=== PATIENT | male | born 1985 | race Caucasian/White ===

== ENCOUNTER 2018-05-07 13:49 | Emergency (ER) | payer BC, OTHER ==
[~2018-05-07] VITALS: Ht 182.9 cm; Wt 145.1 kg
[2018-05-07] MEDS ORDERED: ONDANSETRON 4 MG/2 ML (SDV) Z0FRAN IVP ONE ×2 (14:15→17:15)
[2018-05-07] MEDS ORDERED: NS IV 1000 ML 1,000 ML IV SCH (14:15)
[2018-05-07] MEDS ORDERED: HYOSCYAMINE 0.125 MG (LEVSIN) TAB PO ONE (14:15)
[2018-05-07 14:22] LABS: BASOPHILS % (AUTO) 0 % (0-10); EOSINOPHILS % (AUTO) 0 % (0-10); HEMATOCRIT 26 % (40-54); HEMOGLOBIN 9.1 G/DL (13.3-17.7); LYMPHOCYTES # (AUTO) 3.1 X 10^3 (1.0-4.0); LYMPHOCYTES % (AUTO) 33 % (12-44); MEAN CORPUSCULAR HEMOGLOBIN 30 PG (25-34); MEAN CORPUSCULAR HGB CONC 36 G/DL (32-36); MEAN CORPUSCULAR VOLUME 86 FL (80-99); MEAN PLATELET VOLUME 9.9 FL (7.4-10.4); MONOCYTES # (AUTO) 0.8 X 10^3 (0.0-1.0); MONOCYTES % (AUTO) 8 % (0-12); NEUTROPHILS # (AUTO) 5.6 X 10^3 (1.8-7.8); NEUTROPHILS % (AUTO) 59 % (42-75); PLATELET COUNT 306 10^3/uL (130-400); RED BLOOD COUNT 2.99 10^6/uL (4.35-5.85); RED CELL DISTRIBUTION WIDTH 12.2 % (10.0-14.5); WHITE BLOOD COUNT 9.5 10^3/uL (4.3-11.0)
--- NOTE | 2018-05-07 14:23 | ED GI ---
General Chief Complaint: Abdominal/GI Problems Stated Complaint: N/V;ABD PAIN Nursing Triage Note: PT BROUGHT IN BY [facility] WITH COMPLAINT ABD PAIN, NAUSEA, AND VOMTING. STATES ITS BEEN GOING ON FOR THE LAST FEW DAYS. PT IS ALSO COMPLAINING OF DIZZINESS. PT IS AN OUT [employer]. Sepsis Screen: No Definite Risk Source of Information: Patient, EMS Exam Limitations: No Limitations History of Present Illness Date Seen by Provider: May 07, 2018 Time Seen by Provider: 13:40 Initial Comments On [address] the [place] with chief complaint that he is having some nausea vomiting and diffuse abdominal discomfort. Says for the past 3 or 4 days he has felt poorly until last night when he finally vomited. He says does not normally vomit. He's had no diarrhea or fever but he does have some chills and night sweats. 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 He denies any past medical or surgical history. He does not take any medicines although he did try some over- the-counter Pepto-Bismol and omeprazole with no relief of his symptoms over the last couple days. He quit chewing tobacco approximate 4 days ago but he doesn't think this has anything to do with his nausea and vomiting. He's had no dysuria , discharge or blood from rectum. He says he got a little lightheaded after trying to get up this morning and walked from the gas station back to his rig so they called ambulance. The patient denies a history of black tarry stools prior to taking the Pepto- Bismol. He's not had any blood in his vomitus. Allergies and Home Medications Allergies Coded Allergies: No Known Drug Allergies (Unverified , 05/07/18) Patient Home Medication List Home Medication List Reviewed: Yes Review of Systems Review of Systems Constitutional: No chills, No fever EENTM: No Eye Tearing, No Ear Drainage Respiratory: Denies Orthopnea, Denies Shortness of Air Cardiovascular: Denies Chest Pain, Denies Edema Gastrointestinal: See HPI, Abdominal Pain (diffuse); Denies Constipated, Denies Diarrhea; Nausea, Poor Fluid Intake, Vomiting Genitourinary: Denies Burning, Denies Discharge Musculoskeletal: No back pain, No joint pain Skin: No pruritus, No rash Past Qqrtxhs-Dkgvfo-Dnalfn Hx Patient Social History Alcohol Use: Occasionally Uses Recreational Drug Use: No Type Used: Smokeless Tobacco Recent Foreign Travel: No Contact w/Someone Who Travel: No Recent Infectious Disease Expo: No Recent Hopitalizations: No Immunizations Up To Date Tetanus Booster (TDap): Unknown Seasonal Allergies Seasonal Allergies: No Past Medical History Surgeries: No Respiratory: No Cardiac: No Neurological: No Genitourinary: No Gastrointestinal: No Musculoskeletal: No Endocrine: No HEENT: No Cancer: No Psychosocial: No Integumentary: No Blood Disorders: No Physical Exam Vital Signs Vital Signs - First Documented 05/07/18 13:55 Pulse 131 Resp 19 B/P (MAP) 110/65 (80) Pulse Ox 99 O2 Delivery Room Air Capillary Refill : Less Than 3 Seconds Height/Weight/BMI Height: 6'0" Weight: 320lbs. oz. [id number]; BMI Method:Stated General Appearance: WD/WN, mild distress HEENT: PERRL/EOMI, normal ENT inspection, TMs normal; No pharynx normal ( oropharynx is dry) Neck: non-tender, full range of motion, normal inspection Respiratory: lungs clear, normal breath sounds, no respiratory distress, no accessory muscle use Cardiovascular: normal peripheral pulses, regular rate, rhythm, no edema Peripheral Pulses: 2+ Radial Pulses (R), 2+ Radial Pulses (L) Gastrointestinal: normal bowel sounds, soft, no organomegaly; No rebound; tenderness (mild diffuse tenderness but especially in the epigastric region), other (negative for Guadarrama sign or any tenderness around McBurney's point. No mesenteric signs.) Extremities: non-tender, normal inspection, normal capillary refill Neurologic/Psychiatric: alert, normal mood/affect, oriented x 3 Skin: normal color, warm/dry Progress/Results/Core Measures Results/Orders Lab Results Laboratory Tests Test 05/07/18 14:05 05/07/18 15:38 Range/Units White Blood Count 9.5 4.3-11.0 10^3/uL Red Blood Count 2.99 L 4.35-5.85 10^6/uL Hemoglobin 9.1 L 13.3-17.7 G/DL Hematocrit 26 L 40-54 % Mean Corpuscular Volume 86 80-99 FL Mean Corpuscular Hemoglobin 30 25-34 PG Mean Corpuscular Hemoglobin Concent 36 32-36 G/DL Red Cell Distribution Width 12.2 10.0-14.5 % Platelet Count 306 130-400 10^3/uL Mean Platelet Volume 9.9 7.4-10.4 FL Neutrophils (%) (Auto) 59 42-75 % Lymphocytes (%) (Auto) 33 12-44 % Monocytes (%) (Auto) 8 0-12 % Eosinophils (%) (Auto) 0 0-10 % Basophils (%) (Auto) 0 0-10 % Neutrophils # (Auto) 5.6 1.8-7.8 X 10^3 Lymphocytes # (Auto) 3.1 1.0-4.0 X 10^3 Monocytes # (Auto) 0.8 0.0-1.0 X 10^3 Eosinophils # (Auto) 0.0 0.0-0.3 10^3/uL Basophils # (Auto) 0.0 0.0-0.1 10^3/uL Sodium Level 136 135-145 MMOL/L Potassium Level 3.4 L 3.6-5.0 MMOL/L Chloride Level 107 98-107 MMOL/L Carbon Dioxide Level 21 21-32 MMOL/L Anion Gap 8 5-14 MMOL/L Blood Urea Nitrogen 29 H 7-18 MG/DL Creatinine 0.90 0.60-1.30 MG/DL Estimat Glomerular Filtration Rate > 60 BUN/Creatinine Ratio 32 Glucose Level 139 H 70-105 MG/DL Calcium Level 8.5 8.5-10.1 MG/DL Corrected Calcium 8.7 8.5-10.1 MG/DL Total Bilirubin 0.3 0.1-1.0 MG/DL Aspartate Amino Transf (AST/SGOT) 14 5-34 U/L Alanine Aminotransferase (ALT/SGPT) 26 0-55 U/L Alkaline Phosphatase 32 L 40-136 U/L Total Protein 5.4 L 6.4-8.2 GM/DL Albumin 3.7 3.2-4.5 GM/DL Lipase 28 8-78 U/L Urine Color YELLOW Urine Clarity CLEAR Urine pH 6 5-9 Urine Specific [place] 1.020 1.016-1.022 Urine Protein NEGATIVE NEGATIVE Urine Glucose (UA) NEGATIVE NEGATIVE Urine Ketones NEGATIVE NEGATIVE Urine Nitrite NEGATIVE NEGATIVE Urine Bilirubin NEGATIVE NEGATIVE Urine Urobilinogen NORMAL NORMAL MG/DL Urine Leukocyte Esterase NEGATIVE NEGATIVE Urine RBC (Auto) NEGATIVE NEGATIVE Urine RBC NONE /HPF Urine WBC NONE /HPF Urine Squamous Epithelial Cells RARE /HPF Urine Crystals NONE /LPF Urine Bacteria NONE /HPF Urine Casts NONE /LPF Urine Mucus NEGATIVE /LPF Urine Culture Indicated NO My Orders Orders - ABE THOMAS Saline Lock/Iv-Start (05/07/18 15:01) D5 Ns 1000 Ml Iv Solution (Dextrose 5%/0 (05/07/18 15:01) Saline Lock/Iv-Start (05/07/18 15:40) Lactated Ringers (Lr 1000 Ml Iv Solution (05/07/18 15:40) Medications Given in ED Current Medications Medications Dose Ordered Sig/Warren Route Start Time Stop Time Status Last Admin Dose Admin Dextrose/Sodium Chloride 1,000 ml @ 0 mls/hr Q0M ONCE IV 05/07/18 15:01 05/07/18 15:02 DC 05/07/18 15:19 1,000 MLS/HR Hyoscyamine Sulfate 0.25 mg ONCE ONCE PO 05/07/18 14:15 05/07/18 14:16 DC 05/07/18 14:27 0.25 MG Lactated Ringer's 1,000 ml @ 0 mls/hr Q0M ONCE IV 05/07/18 15:40 05/07/18 15:41 DC 05/07/18 16:00 1,000 MLS/HR Ondansetron HCl 8 mg ONCE ONCE IVP 05/07/18 14:15 05/07/18 14:16 DC 05/07/18 14:27 8 MG Vital Signs/I&O 05/07/18 13:55 Pulse 131 Resp 19 B/P (MAP) 110/65 (80) Pulse Ox 99 O2 Delivery Room Air Blood Pressure Mean: 80 Progress Progress Note #1: Time: 14:19 Progress Note Most consistent with a viral gastroenteritis. His vitals except for his mild tachycardia are unremarkable. We will give him some fluids and some symptomatic medicines check some basic labs to include a lipase and reevaluate. Progress Note #2: Time: 15:48 Progress Note This pain and nausea are under control however we started a second liter fluids to do still feeling lightheaded when he stood up. He about 1500 cc into his IV and still saying he's pretty lightheaded when he got up to go produce a urine sample so is having a third liter of fluids to help take him up since he does weigh 320 pounds. Abdominal exam is still benign without any mesenteric signs. He denies distention. No history of trauma, GERD or peptic ulcer so it's unlikely this is an acute bleed. He says he does not follow or tingling primary doctor but he does have a doctor that she is known to. His plan is to start heading home after discharge from the ER and get this worked up. He has been calling family and formulating a plan. At this point is not emergent so be better if he had his anemia worked up closer to home. For this reason we'll forego doing a digital rectal exam at this time. Progress Note #3: Time: 17:04 Progress Note After his 3 L of fluids he is feeling much better and got up and walked to the bathroom on his own with no dizziness. We will allow him to discharge with the plan to follow up in the next 1-2 weeks with primary care to workup his anemia. No evidence of any acute hemorrhage. Departure Impression Primary Impression: Gastroenteritis Additional Impression: Anemia, normocytic normochromic Disposition: 01 HOME, SELF-CARE Condition: Improved Departure-Patient Inst. Decision time for Depature: 17:07 Patient Instructions: Normocytic Normochromic Anemia (DC), Viral Gastroenteritis, Adult (DC) Add. Discharge Instructions: Drink plenty of fluids return home and follow up with your primary care doctor. You'll need start working this up within the next few weeks. If you begin to experience chest pain worsening weakness or shortness of breath then you should return to the nearest ER. All discharge instructions reviewed with patient and/or family. Voiced understanding. 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 ABE THOMAS May 07, 2018 14:23
[2018-05-07 14:34] LABS: ALANINE AMINOTRANSFERASE 26 U/L (0-55); ALBUMIN 3.7 GM/DL (3.2-4.5); ALKALINE PHOSPHATASE 32 U/L (40-136); BILIRUBIN,TOTAL 0.3 MG/DL (0.1-1.0); BUN/CREATININE RATIO 32; CALCIUM 8.5 MG/DL (8.5-10.1); CARBON DIOXIDE 21 MMOL/L (21-32); CHLORIDE 107 MMOL/L (98-107); GFR ESTIMATED > 60; GLUCOSE 139 MG/DL (70-105); LIPASE 28 U/L (8-78); POTASSIUM 3.4 MMOL/L (3.6-5.0); SODIUM 136 MMOL/L (135-145); TOTAL PROTEIN 5.4 GM/DL (6.4-8.2)
[2018-05-07] MEDS ORDERED: D5 NS 1000 ML IV SOLUTION 1,000 ML IV ONE (15:01)
[2018-05-07] MEDS ORDERED: LACTATED RINGERS 1,000 ML IV ONE (15:40)
[2018-05-07 15:49] LABS: BILIRUBIN,URINE NEGATIVE (NEGATIVE); CLARITY,URINE CLEAR; COLOR,URINE YELLOW; GLUCOSE, URINE (UA) NEGATIVE (NEGATIVE); KETONES,URINE NEGATIVE (NEGATIVE); LEUKOCYTE ESTERASE ,URINE NEGATIVE (NEGATIVE); NITRITE,URINE NEGATIVE (NEGATIVE); PH,URINE 6 (5-9); PROTEIN,URINE NEGATIVE (NEGATIVE); UROBILINOGEN,URINE NORMAL (NORMAL)
[2018-05-07 15:58] LABS: SQUAMOUS EPITHELIAL CELL,UR RARE /HPF
[2018-05-07] MEDS ORDERED: ONDA4TAB11 PO (17:08)
[2018-05-07 17:44] VITALS: BP 116/69
== END 2018-05-07 17:44 | disposition home or self-care (01) ==
LOC: ER 13:52
DX: K52.9 Noninfective gastroenteritis and colitis, unspecified (principal); D64.9 Anemia, unspecified; Z87.891 Personal history of nicotine dependence
CPT/HCPCS: 36415; 80053; 81000; 83690; 85025; 96361; 96374; 96376